=== PATIENT | female | born 1960 | race Caucasian/White ===

== ENCOUNTER → 2018-01-14 | Day surgery (SDC) | payer OTHER ==
--- NOTE | 2018-01-12 12:33 | MH ---
cc: CORINNE LIANG DATE OF ADMISSION: 01/14/2018 CHIEF COMPLAINT: Multiple polyps and thickened endometrial lining with stenotic os. SCHEDULED PROCEDURE: MyoSure under anesthesia, possible additional NovaSure. 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 We attempted to do an endometrial biopsy that she is too uncomfortable due to her nulliparity and menopause. We were able to do a saline infused sonogram, which showed a thickened endometrial lining and multiple polyps. It was felt that this needed to be addressed further. PAST MEDICAL HISTORY: Her medical history is significant for being above her ideal body weight with a BMI of 43.7. She is not hypertensive. She is not diabetic. She has never been . MEDICATIONS: She is on no medications at this time. FAMILY HISTORY: She did have a mother with breast cancer and there is a family history of diabetes. SOCIAL HISTORY: She is a former smoker. ALLERGIES: SHE HAS NO ALLERGIES. She is up-to-date mammography and Pap smears. She does have some rheumatoid arthritis. REVIEW OF SYSTEMS: She does not have any problem with her bowels or bladder. She is not involved with anybody at this time. PHYSICAL EXAMINATION: WEIGHT: 239. HEIGHT: 5 feet 2. VITAL SIGNS: Her blood pressure is 122/76. Today actually her blood pressure was 140/90 but I think she was anxious. NECK: She has no thyroid enlargement. LUNGS: Her lungs are clear to auscultation and percussion. HEART: Heart rate and rhythm and regular without murmur, heave or thrills. BREASTS: Without dominant mass, nipple discharge, skin retraction or adenopathy. ABDOMEN: Obese. She has a pannus. She has no yeast underneath the pannus or the breasts. No hepatosplenomegaly that I can discern. No inguinal adenopathy. No hernias. No fluid wave. PELVIC: The perineum is well-estrogenized. Vault is well-elevated. Cervix is nulliparous. The uterus is not palpable and neither are the ovaries but we have the ultrasound. RECTAL: Guaiac in the office was negative. EXTREMITIES: Unremarkable other than mild varicosities and minimal edema. IMPRESSION: A menopausal female above her ideal body weight who has multiple polyps and thickened endometrial stripe identified on sonohysterogram. She has a stenotic cervix and will undergo further evaluation and removal of these polyps under general anesthesia in same day surgery. Tissue will be sent to pathology and further intervention will be determined as needed. We have reviewed risks, benefits, expectations including damage to bowel, infection, excessive bleeding, damage to bladder, complications of medication and anesthesia. She has signed consents and is ready to proceed. MD DALY Rodriguez/OSCAR /1:03 PM /12:28 PM MTDD
[~2018-01-14] MED LIST: KETOROLAC TROMETHAMINE 30 MG/ML (IVP) VIAL IV PUSH ONE; LACTATED RINGER'S 1000 ML INJ 1,000 ML ONE; MEPERIDINE HCL 25 MG/ML VIAL ONE; MIDAZOLAM HCL 2 MG/2 ML VIAL ONE; ONDANSETRON HCL 4 MG/2 ML VIAL IV PUSH ONE; ONDANSETRON HCL 4 MG/2 ML VIAL ONE; PROMETHAZINE INJ 25 MG/ML VIAL ONE; PROPOFOL 200 MG/20 ML AMP IV ONE; ceFAZolin INJ 1,000 MG VIAL ONE
--- NOTE | 2018-01-15 10:03 | MP ---
cc: CORINNE LIANG DATE OF SURGERY: 01/14/2018 PREOPERATIVE DIAGNOSIS Known endometrial polyps. POSTOPERATIVE DIAGNOSIS Known endometrial polyps. PROCEDURE Hysteroscopy and endometrial polypectomy using the MyoSure technique. ANESTHESIA General endotracheal. SURGEON Dr. Liang. DIRECTOR RADIO Te, MS3 FINDINGS Examination under anesthesia revealed a small mobile uterus. The cervix was fairly stenotic but eventually dilated to allow the passage of the hysteroscope. Hysteroscopy revealed four to five polyps spaced throughout the intrauterine cavity. These did not appear particularly vascular and were easily removed with the MyoSure to clean out the cavity in its entirety. COUNTS Sponge, instrument, needle count were correct. ESTIMATED BLOOD LOSS Minimal. CONDITION She went to the recovery room stable. PROCEDURE The patient was identified as Ms. Gentile in holding. Her permit was reviewed. She was taken to the operating room, placed under general anesthesia in the dorsal lithotomy position. She was prepped and draped in the usual sterile fashion and her bladder was emptied. A time-out was performed with all in attendance. She did receive 2 grams of Ancef. Examination under anesthesia was performed and the cervix was grasped with tenaculum and endocervical curettage was obtained. The cervix was dilated to allow the passage of the MyoSure hysteroscope. Systematic evaluation of the intrauterine cavity revealed the findings of multiple polyps throughout. The MyoSure was introduced ___ removed the entirety of the polyps so that the end of the MyoSure resection of the polyps ___ intrauterine cavity appeared unremarkable. Sampling was taken from throughout the cavity. The ___ of the septum was ruled out. The NovaSure was not needed at this time. The instrumentation was removed and she was placed in dorsal supine position, awoken and taken to the recovery room in stable condition. Corinne Liang MD PPC/TLKristina /8:44 PM /9:27 AM
== END | disposition home or self-care (01) ==
LOC: ESDC 06:19
PROVIDERS: ATTEND Obstetrics & Gynecology
DX: N85.01 Benign endometrial hyperplasia (principal); N85.00 Endometrial hyperplasia, unspecified
CPT/HCPCS: 00952; 58558; 88305; J0690; J1885; J2175; J2250; J2405; J2550; J3010; J7120